=== PATIENT | female | born 1990 ===

== ENCOUNTER 2018-08-18 10:50 | Inpatient (IN) | payer BC ==
[2018-08-18 11:12] VITALS: BMI 23.3
[2018-08-18] MEDS ORDERED: Lactated Ringer's 1,000 ML IV ONE (11:17)
[2018-08-18] MEDS ORDERED: Penicillin G 5 Million Unit Vial IVPB ONE (12:00)
[2018-08-18 13:06] LABS: BASO % 0.3 % (0.0-2.0); EOS % 0.2 % (0.0-4.0); LYMPH # 1.2 K/uL (1.0-4.3); MEAN CELL VOLUME 93.3 fl (81.0-99.0); MEAN CORPUSCULAR HEMOGLOBIN 31.4 pg (27.0-31.0); MEAN CORPUSCULAR HGB CONC 33.7 g/dL (33.0-37.0); MEAN PLATELET VOLUME 9.9 fl (7.2-11.7); MONO # 0.5 K/uL (0.0-0.8); MONO % 5.7 % (0.0-10.0); NEUT # 7.1 K/uL (1.8-7.0); NEUT % 79.8 % (50.0-75.0); RBC 4.14 Mil/uL (3.80-5.20); RED CELL DISTRIBUTION WIDTH 13.6 % (11.5-14.5); WHITE BLOOD COUNT 8.8 K/uL (4.8-10.8)
[2018-08-18] MEDS ORDERED: Oxytocin 30 UNIT in NS 500 ml 30 UNITS/500 ML BAG IV ONE ×3 (14:04→20:40)
[2018-08-18] MEDS ORDERED: Lactated Ringer's 1,000 ML IV SCH ×2 (14:45→22:44)
[2018-08-18] MEDS ORDERED: Fentanyl/Bupivacaine HCl 250 ML EPI ONE (16:13)
--- NOTE | 2018-08-18 18:20 | OBHP ---
Datetime: 08/18/2018 11:15 IP Adm Impression: Term, intrauterine IP Admit Plan: Admit to unit Admit Comment, IP Provider: HPI: Keaton is a 35 year old G1 at 40.0 who presents with concern for RO M. She noticed a gush of fluid this morning at around 07:00 and has continued to leak since then. No vaginal bleeding, no ctx, reports good movement. OLIVE: 08/18/18 based on LMP PMH Denies PSH Denies Medications PNV Social History Denies any tobacco, alcohol or drug use during the . FOB is , involved in pregnanc y Family History Not significant PHYSICAL EXAM Vitals reviewed labs: GBS positive SSE: gross pooling seen ASSESSMENT/PLAN: 35 year old G1 at 40.0 with PROM - Patient is not emy regularly, may need augmentation - GBS positive, starting penicillin prophylaxis - Bedside confirmed vertex presentation - Cervical exam deferred due to ROM Plan discussed with attending, Dr. Mina Crook MD OB Fellow The patient was seen with the resident I agree with the note Abdomen - PN: Normal Lungs - PN: Normal Heart - PN: Normal HEENT - PN: Normal General - PN: Normal Presentation-Admit: Vertex FHR - Baseline A Provider: 130 Gestation - Est Wks by US: 40.0 EGA AdmitDate IP: 40.0 Vital Signs Provider: Reviewed IP Chief Complaint: Suspected ruptured membranes NICHD Variability Prov Fetus A: Moderate 6-25bpm NICHD Accel Fetus A IP Provider: [id number] FHR Category Provider Fetus A: Category I NICHD Decel Fetus A IP Provider: None
[2018-08-18] MEDS ORDERED: OXYTOCIN/0.9 % NS 20 UNIT/1,000 ML BAG IV SCH ×2 (19:45→22:44)
[2018-08-18] MEDS ORDERED: Lidocaine 1% Inj (20ml) ONE (19:49)
[2018-08-18] MEDS ORDERED: Oxycodone/Acetaminophen 5/325 mg Tab PO PRN ×2 (20:40→22:44)
[2018-08-18] MEDS ORDERED: Benzocaine/Menthol SPRAY TOP PRN ×2 (20:40→22:44)
--- NOTE | 2018-08-18 20:53 | OBDS ---
DELIVERY PERSONNEL Delivery Doctor: Nicci Enriquez MD MATERNAL INFORMATION Delivery Anesthesia: Epidural Placenta Cultured: No Maternal Complications: None Provider Comments: Delivered live baby boy at 8:09 PM the baby was bulb suctioned on the perineum an d transferred to the maternal chest. The cord was clamped and cut 3 vessels noted cord blood was obt ained and sent to the lab. The placenta was delivered at 8:13 PM. The estimated blood loss was 100 cc. There was a first-degree laceration was repaired with 2-0 Rapide. The mother tolerated the pro cedure well the baby went to the well baby nursery with Apgars of 9/9 3070 g LABOR SUMMARY [facility]: 08/18/2018 00:00 No. Babies in Womb: 0 LABOR INFORMATION Group B Beta Strep: Positive MEMBRANES Membranes Rupture Method: Spontaneous Rupture of Membranes: 08/18/2018 08:30 Amniotic Fluid Color: Clear Amniotic Fluid Amount: Moderate Amniotic Fluid Odor: Normal IDENTIFICATION/MEDS BABY A ID Band Number: [id number] ID Band Location: Left Leg; Left Arm
[2018-08-19 07:02] LABS: BASO % 0.2 % (0.0-2.0); EOS % 0.1 % (0.0-4.0); HEMOGLOBIN 10.9 g/dL (12.0-16.0); LYMPH # 1.6 K/uL (1.0-4.3); LYMPH % 12.9 % (20.0-40.0); MEAN CELL VOLUME 93.4 fl (81.0-99.0); MEAN CORPUSCULAR HEMOGLOBIN 31.7 pg (27.0-31.0); MEAN PLATELET VOLUME 9.6 fl (7.2-11.7); MONO # 0.8 K/uL (0.0-0.8); MONO % 6.2 % (0.0-10.0); NEUT # 10.1 K/uL (1.8-7.0); NEUT % 80.6 % (50.0-75.0); RBC 3.44 Mil/uL (3.80-5.20); RED CELL DISTRIBUTION WIDTH 13.6 % (11.5-14.5); WHITE BLOOD COUNT 12.5 K/uL (4.8-10.8)
--- NOTE | 2018-08-20 09:21 | OBDCSUM ---
Datetime: 08/20/2018 09:19 Discharged to, Provider: Home Follow up at, Provider: [facility] Discharge Instructions, Provider: Routine instructions given Discharge Diagnosis, Provider: Term Delivered Follow up in weeks, Provider: 6w Disch Activity Restrictions: No sexual activity; Nothing in vagina - [place], tampons, douche
--- NOTE | 2018-08-20 09:21 | OBPPN ---
Datetime: 08/20/2018 09:18 PP Pain Prov: Within normal limits PP Nausea Prov: Denies PP Flatus Prov: Yes PP BM Prov: Yes PP Breasts Prov: Not Done PP Heart Prov: Normal PP Lungs Prov: Normal PP Abdomen/Uterus Prov: Normal PP Lochia Prov: Normal PP Vulva/Perineum Prov: Normal PP CVA Tenderness Prov: Normal PP Extremities Prov: Normal PP Progress Prov: Normal PP Impression Prov: Normal progression PP Plan Prov: Continue present management PP Progress Note Prov: She feels fine this moring. Ready to go home A; S/P day 2 PLAN: discharge home and follow up in 6w Vital Signs Provider PP: Reviewed; Within Normal Limits
[2018-08-20 16:52] VITALS: BP 111/60; PULSE 78; RESP 20; TEMP 98; O2SAT 98
== END 2018-08-20 12:30 | disposition home or self-care (01) | DRG 807 ==
LOC: H.EROB2 10:50 → H.L&D 11:18 → H.OB/GYN 22:17
PROVIDERS: ADMIT Obstetrics & Gynecology Gynecology; ATTEND Obstetrics & Gynecology Gynecology
PROC: 10E0XZZ Delivery of Products of Conception, External Approach (ICD-10-PCS; principal; 2018-08-18)
PROC: 0HQ9XZZ Repair Perineum Skin, External Approach (ICD-10-PCS; 2018-08-18)
DX: O48.0 Post-term pregnancy (principal); Z37.0 Single live birth; O70.0 First degree perineal laceration during delivery; Z3A.40 40 weeks gestation of pregnancy; O69.81X0 Labor and delivery complicated by cord around neck, without compression, not applicable or unspecified; O99.824 Streptococcus B carrier state complicating childbirth